=== PATIENT | female | born 1935 | race Hispanic/Latino ===

== ENCOUNTER 2024-07-14 08:12 | Observation (INO) | payer OTHER ==
[2024-07-10 12:45] VITALS: BP 174/65; PULSE 78; RESP 16; TEMP 98.1
[2024-07-10 12:46] LABS: APPEARANCE,URINE CLEAR (CLEAR); BILIRUBIN,URINE NEGATIVE (NEGATIVE); COLOR,URINE LIGHT-YELLOW (YELLOW); GLUCOSE, URINE (UA) NEGATIVE (NEGATIVE); KETONES,URINE NEGATIVE (NEGATIVE); LEUKOCYTE ESTERASE ,URINE 75 Leu/uL (NEGATIVE); NITRATE,URINE NEGATIVE (NEGATIVE); OCCULT BLOOD,URINE NEGATIVE (NEGATIVE); PH,URINE 6.5 (5.0-8.0); PROTEIN,URINE 20 mg/dL (NEGATIVE); UROBILINOGEN,URINE 0.2 mg/dL (0.2-1.0)
[2024-07-10 12:47] LABS: ADD UA MICROSCOPIC YES
[2024-07-10 12:50] LABS: RBC,URINE 0-1 /HPF (0-1); SQUAMOUS EPITHELIAL CELL,UR RARE /HPF (0-2)
[2024-07-10 12:51] LABS: BASOPHILS # (AUTO) 0.05 K/uL (0.00-0.20); BASOPHILS % (AUTO) 0.7 % (0.0-5.0); EOSINOPHILS # (AUTO) 0.28 K/uL (0.00-0.70); HEMATOCRIT 42.2 % (36-48); IMMATURE GRANULOCYTE ABSOLUTE 0.02 K/uL (0-1); LYMPHOCYTES # (AUTO) 2.2 K/uL (1.0-4.8); LYMPHOCYTES % (AUTO) 31.1 % (21.0-51.0); MEAN CORPUSCULAR HEMOGLOBIN 30.5 pg (27.0-33.0); MEAN CORPUSCULAR HGB CONC 33.6 g/dL (32.0-36.0); MEAN CORPUSCULAR VOLUME 90.6 fL (79-99); MONOCYTES # (AUTO) 0.6 K/uL (0.1-1.0); MONOCYTES % (AUTO) 8.6 % (3.0-13.0); NEUTROPHILS # (AUTO) 3.9 K/uL (1.8-7.7); NEUTROPHILS % (AUTO) 55.3 % (40.0-77.0); PLATELET COUNT (AUTO) 211 K/uL (130-400); RED BLOOD CELL COUNT(AUTO) 4.66 MIL/uL (4.00-5.50); RED CELL DISTRIBUTION WIDTH 12.6 % (11.0-15.5); WHITE BLOOD COUNT (AUTO) 7.1 K/uL (4.8-10.8)
[2024-07-10 12:58] LABS: CREATININE 1.1 mg/dL (0.5-1.0); POTASSIUM 3.7 mmol/L (3.5-5.1)
[2024-07-10 13:13] LABS: BACTERIA,URINE Rare /HPF (None Seen)
[2024-07-10 13:20] LABS: INR 1.02 (0.85-1.15); PROTHROMBIN TIME 10.8 SEC (9.6-11.6)
[2024-07-10 13:21] LABS: PARTIAL THROMBOPLASTIN TIME 28.6 SEC (26.3-35.5)
--- NOTE | 2024-07-10 13:28 | EKG ---
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
[2024-07-14] VITALS (24 sets, daily range): BP systolic 114–145; BP diastolic 50–74; PULSE 65–101; RESP 12–20; TEMP 97.2–98.3; O2SAT 95
[~2024-07-14] VITALS: Ht 152.4 cm; Wt 66.6 kg
[~2024-07-14 08:12] MED LIST: AMLO1CAP PO; ATOR40TA71 PO; CALC-1125 PO; EXEM25TA PO; FISH1CAP63 PO; FOLI1TAB85 PO; METO25TA6 PO; METO50TA18 PO; POTA-277 PO; TIMO.25OS OD; TRIA1CAP87 PO; VITAMIN D PO
[2024-07-14] MEDS: LACTATED RINGERS 1000ML 1,000 ML IV ONE ×2 (09:43→10:17)
[2024-07-14] MEDS: ceFAZolin SODIUM 2 GM VIAL ONE (09:43)
[2024-07-14] MEDS ORDERED: LIDOCAINE PF 100MG/5ML (2%) SYRINGE 5ML ONE (12:55)
[2024-07-14] MEDS ORDERED: proPOFol 10 MG/ML 20ML VIAL IV ONE (12:55)
[2024-07-14] MEDS ORDERED: FENTanyl CITRate PF 50 MCG/1 ML 2ML VIAL ONE (12:55)
[2024-07-14] MEDS: ceFAZolin SODIUM 2 GM VIAL IVPB ONE (13:56)
[2024-07-14] MEDS ORDERED: ondanSETRON 4MG INJ ONE (15:12)
[2024-07-14] MEDS ORDERED: ePHEDrine SULFate 50 MG/ML AMPULE ONE (15:12)
[2024-07-14] MEDS ORDERED: dexaMETHasone SOD PHOSPHATE 10MG/ML 1ML VIAL ONE (15:12)
--- NOTE | 2024-07-14 17:06 | OP ---
Operative Note: DATE OF PROCEDURE: 07/14/24 SURGEON: BETH CONNORS MD COMPUTER FORENSIC SPECIALIST: [] PREOPERATIVE DIAGNOSIS: Left breast cancer with a confirmed positive lymph node left axilla POSTOPERATIVE DIAGNOSIS: Left breast cancer PROCEDURE: Left simple mastectomy with left axillary dissection INDICATIONS: Patient with a left breast cancer locally advanced needing local regional control DESCRIPTION OF PROCEDURE:Patient is brought to the operating room placed on the operating table in a supine position once general endotracheal anesthesia is achieved patient's left arm and chest are prepped and draped in sterile fashion. Using the hand-held Doppler identified the medial perforators are marked about the skin. I marked my inferior mammary fold, the sternum and the xiphoid and the superior border of the breast under the clavicle. we then proceeded to do elliptical incision over top of the breast that involve the nipple and all the inferior quadrants of the breast because the skin below the nipple was completely involved with tumor. and started to create our skin flaps started developing my superior and inferior skin flaps. Medially we went to the level of the sternum making sure to preserve the medial perforators that I had marked. superiorly to the level of the clavicle, inferior to the inframammary fold and lateral to her insertion of the serratus muscle. We then proceeded to use the Bovie cautery to remove the breast of the pectoralis muscle obtain hemostasis and remove the specimen completely. We marked the specimen with long white stitch lateral, long black stitch was cephalad, short black was medial. We obtain hemostasis within our surgical wound irrigated with saline. We then turned to the axilla with blunt dissection identified the axillary vein and dissected the fatty pad distal to this with the hand-held harmonic we did a level 3 going under the pectoralis muscle and a level 1 dissection. We handed off of the specimen as axillary dissection and then obtain hemostasis. And then proceeded to place our 10 Liberian drain into the lateral skin and secured into the skin with a nylon suture x2, leaving one drain in the superior skin flap and one in the inferior skin flap. I then proceeded to released the inferior skin flap of the upper abdomen to obtain more mobility. We also excised the lateral chest wall skin that was redundant to the we can have a flat closure. And sent the skin for specimen. We then proceeded to close the skin incisions with 2 layer fashion the deep dermal was closed with 0 Vicryl and the skin was closed with 4-0 Monocryl running subcuticular fashion , Dermabond was applied over top. 4 x 4's fluffs and Kerlix were applied over top and then Nathan bandage 6 inch for compression. Patient tolerated the procedure well all counts were correct x2 at the end of the procedure. ESTIMATED BLOOD LOSS: 20cc Devices left in place: 10 Liberian flat drain x2 Specimens removed: Left breast, left axillary dissection, left chest wall skin Anesthesia: Local MAC with regional control with block BETH CONNORS MD Jul 14, 2024 17:06
[2024-07-14] MEDS: FENTanyl CITRate PF 50 MCG/1 ML 2ML VIAL ONE (17:51)
--- NOTE | 2024-07-14 18:45 | NUR ---
Arrival on Unit Patient arrived on unit from PACU. Patient oriented to room. Family at bedside.
[2024-07-14] MEDS ORDERED: morPHINE 4 MG SYG IVP PRN (20:00)
[2024-07-14] MEDS: 0.9%NACL 1000ML 1,000 ML IV SCH (20:54)
[2024-07-14] MEDS: ibuPROFEN 800 MG TAB PO SCH (20:54)
[2024-07-15] VITALS (9 sets, daily range): BP systolic 118–134; BP diastolic 51–59; PULSE 56–92; RESP 16–20; TEMP 97.6–98.5; O2SAT 95–97
[2024-07-15 05:04] LABS: BASOPHILS # (AUTO) 0.01 K/uL (0.00-0.20); BASOPHILS % (AUTO) 0.1 % (0.0-5.0); HEMATOCRIT 40.4 % (36-48); IMMATURE GRANULOCYTE ABSOLUTE 0.03 K/uL (0-1); LYMPHOCYTES # (AUTO) 0.8 K/uL (1.0-4.8); LYMPHOCYTES % (AUTO) 7.3 % (21.0-51.0); MEAN CORPUSCULAR HEMOGLOBIN 30.3 pg (27.0-33.0); MEAN CORPUSCULAR HGB CONC 33.4 g/dL (32.0-36.0); MEAN CORPUSCULAR VOLUME 90.6 fL (79-99); MONOCYTES # (AUTO) 0.2 K/uL (0.1-1.0); MONOCYTES % (AUTO) 2.2 % (3.0-13.0); NEUTROPHILS % (AUTO) 90.1 % (40.0-77.0); PLATELET COUNT (AUTO) 173 K/uL (130-400); RED BLOOD CELL COUNT(AUTO) 4.46 MIL/uL (4.00-5.50); RED CELL DISTRIBUTION WIDTH 12.5 % (11.0-15.5); WHITE BLOOD COUNT (AUTO) 11.1 K/uL (4.8-10.8)
[2024-07-15 05:21] LABS: POTASSIUM 3.2 mmol/L (3.5-5.1)
[2024-07-15] MEDS: ketOROlac 15MG/ML VIAL (15MG/ML) IV ONE (10:13)
--- NOTE | 2024-07-15 11:00 | NUR ---
cm note call made to [facility] and spoke to [place] commercial construction project manager and states they do not accept [facility] any more. also, referral faxed to [facility]. and pending callback.
--- NOTE | 2024-07-15 11:32 | PN ---
GENERAL SURGERY PROGRESS NOTE Date/Time Patient Seen: [ 07/15/2024] Problem List: [ ] Interval History: [88-year-old female, postop day 1., left simple mastectomy with left axillary dissection by Dr. Malcolm Patient states she has been doing well throughout the night Mild pain at a 1-2 on a pain scale this morning Surgical dressings remained dry and intact throughout the night CEZAR drain #1 with 40 cc serosanguineous output CEZAR drain #2 with 50 cc serosanguineous output WBC stable at 11.1 H&H stable 13.5 and 40.4 Patient denies any nausea or vomiting, tolerated diet this morning May advance diet as tolerated Encouraged ambulation Instructed to avoid using any strenuous movements from upper body We will order Toradol 15 mg IV x1 dose now for pain management Plan will be for patient to be discharged home tomorrow once arrangements for home health have been made Dr. Malcolm updated on patient's status] Current Medications Medications (Trade) Dose Ordered Sig/Guerda Route Start Time Stop Time Status Last Admin Dose Admin Ibuprofen (moTRIN) 800 mg Q8H PO 07/14/24 20:00 08/13/24 19:59 07/14/24 20:54 800 MG Sodium Chloride 1,000 ml @ 30 mls/hr Q24H IV 07/14/24 19:30 08/13/24 19:29 07/14/24 20:54 30 MLS/HR Physical Examination: GENERAL: [No acute distress, elderly female, comfortably resting in bed with and daughter at bedside] HEAD: [Normocephalic] EYES: [Conjunctiva and sclera normal.] ENT: [Hearing grossly intact.] NECK: [Supple without JVD.] LUNGS: [Clear breath sounds bilaterally.] HEART: [Normal rate and rhythm. Surgical dressings to chest dry and intact, CEZAR drains x 2 with serosanguineous output] VASC: [Peripheral pulses +2 bilaterally.] ABD: [Bowel sounds normal, soft, nontender, no masses, no organomegaly. No audible bruits.] : [Not examined] EXT: [No edema.] SKIN: [No lesions noted.] NEURO: [Awake, alert, and oriented x3. No focal sensory or strength deficits noted.] Vital Signs (last 8hr) Date Time Temp Pulse Resp B/P (MAP) Pulse Ox O2 Delivery O2 Flow Rate FiO2 07/15/24 08:00 98.2 92 18 134/59 97 Nasal Cannula 2.0 24 07/15/24 04:00 98.2 56 19 122/57 97 Nasal Cannula 2.0 Laboratory: [ ] Hematology Labs: Test 07/15/24 04:49 Range/Units White Blood Count 11.1 H 4.8-10.8 K/uL Red Blood Count 4.46 4.00-5.50 MIL/uL Hemoglobin 13.5 12.0-16.0 g/dL Hematocrit 40.4 36-48 % Mean Corpuscular Volume 90.6 79-99 fL Mean Corpuscular Hemoglobin 30.3 27.0-33.0 pg Mean Corpuscular Hemoglobin Concent 33.4 32.0-36.0 g/dL Red Cell Distribution Width 12.5 11.0-15.5 % Platelet Count 173 130-400 K/uL Mean Platelet Volume 10.9 H 7.5-10.5 fL Immature Granulocyte % (Auto) 0.3 0-1 % Neutrophils (%) (Auto) 90.1 H 40.0-77.0 % Lymphocytes (%) (Auto) 7.3 L 21.0-51.0 % Monocytes (%) (Auto) 2.2 L 3.0-13.0 % Eosinophils (%) (Auto) 0.0 0.0-8.0 % Basophils (%) (Auto) 0.1 0.0-5.0 % Neutrophils # (Auto) 10.0 H 1.8-7.7 K/uL Lymphocytes # (Auto) 0.8 L 1.0-4.8 K/uL Monocytes # (Auto) 0.2 0.1-1.0 K/uL Eosinophils # (Auto) 0.00 0.00-0.70 K/uL Basophils # (Auto) 0.01 0.00-0.20 K/uL Absolute Immature Granulocyte (auto 0.03 0-1 K/uL Nucleated Red Blood Cells 0.0 0.0-0.19 % White Cell Morphology Comment See comments Chemistry Labs: Test 07/15/24 04:49 Range/Units Sodium Level 145 136-145 mmol/L Potassium Level 3.2 L 3.5-5.1 mmol/L Chloride Level 104 101-111 mmol/L Carbon Dioxide Level 26 21-32 mmol/L Blood Urea Nitrogen 22 H 7-18 mg/dL Creatinine 1.0 0.5-1.0 mg/dL Glomerular Filtration Rate Calc 54 >90 mL/min Random Glucose 136 H 70-105 mg/dL Total Calcium 8.7 8.5-10.1 mg/dL Diagnostics / Radiology: [Copy/Paste Echos/Imaging Report here] Impression and Plan: [ ] ATTESTATION BY PHYSICIAN I have seen and examined the patient. I reviewed the documentation, medical decision making, and treatment plan as noted by the mid-level provider above. I agree with the findings and plan of care. MD SHANNON MEJIA LETICIA A APRN Jul 15, 2024 11:32
--- NOTE | 2024-07-15 13:38 | NUR ---
cm note received callback from Bairon Worthy nurse electronic die maker with [facility] and states they are in network, but will not be able to verify if can accept until wednesday.
--- NOTE | 2024-07-15 14:18 | NUR ---
CM NOTE Call made to nurses that care hh superintendent plant protection.. pending callback.
--- NOTE | 2024-07-15 14:53 | NUR ---
CM NOTE SPOKE TO [employer] [employer] FOR [facility]URSES THAT CARE [facility] AND STATES THEY ARE NOT IN NETWORK.
--- NOTE | 2024-07-15 15:30 | NUR ---
PT radha completed. Pt able to transfer and ambulate with walker. Pt has walker at home and I left one in her room for her use here> Patient completed 6MWT at 94% and better on room air. Patient given a sling to use ad daniel for comfort and instructed in use Patient and family given HEP and handouts education on risk factors, limitations and ROM post op. No further questions. pt able to ambulate in halls ad daniel, DC from PT
--- NOTE | 2024-07-15 15:39 | NUR ---
Education Patient and family educated on how to empty and accurately measure CEZAR Drains in place, and on how to reset the drains for suction. RN demonstrated the entire process. Patient and family verbalized understanding.
--- NOTE | 2024-07-15 17:41 | NUR ---
cm note met with pt and with daughter emely hua present, states pt is independent with ambulation, adls, has walker, but does not use. no provider no home health, daughter states she can assist as needed.plan is for home [place]. informed of calls to Home health agencies, and no acceptance yet, informed of calls to several Agencies.but no approval yet. will continue to followup on this. nurse updated as well. Addendum: 07/15/24 at 1745 by TESS HUFFMAN CM Amended: Links added.
--- NOTE | 2024-07-15 17:50 | NUR ---
cm note Referral sent to [facility], per rep Bairon Worthy, [facility] is in network, but need to verify coverage. will review on Wednesday. and will advise. updated primary nurse.
[2024-07-16] VITALS: BP 112/57; PULSE 95; RESP 16; TEMP 97.5
[2024-07-16 04:00] VITALS: BP 142/61; PULSE 80; RESP 16; TEMP 97.7
[2024-07-16 07:42] VITALS: BP 148/72; PULSE 82; RESP 18; TEMP 97.8
[2024-07-16 08:00] VITALS: O2SAT 94
[2024-07-16] MEDS: TIMOLOL MALEATE 0.25% 5 ML BOTTLE OD SCH (08:43)
[2024-07-16] MEDS: HCTZ PO SCH (08:43)
[2024-07-16] MEDS: [UNRECOGNIZED DRUG - OTHER] PO SCH (08:43)
[2024-07-16] MEDS: VITAMIN D PO SCH (08:44)
[2024-07-16] MEDS ORDERED: TRIAMTEREN/HCTZ 37.5/25 MG 1 TAB TAB PO SCH (09:00)
[2024-07-16] MEDS: Vitamin B Complex/Vit C/Folic Acid PO SCH (09:36)
[2024-07-16] MEDS: metoPROLOL tartRATE 25 MG TAB PO SCH (09:36)
--- NOTE | 2024-07-16 10:51 | PN ---
GENERAL SURGERY PROGRESS NOTE Date/Time Patient Seen: [07/16/2024 ] Problem List: [ ] Interval History: [88-year-old female, postop day 2, left simple mastectomy with left axillary dissection by Dr. Malcolm Patient states she has been doing well throughout the night Minimal pain reported by patient Surgical incisions with edges well approximated using Dermabond, flaps are looking good and healthy, no signs of ischemia CEZAR drain #1 with serosanguineous output CEZAR drain #2 with serosanguineous output Tolerating regular diet without any nausea or vomiting Patient has been ambulating without any problems Plan plans to discharge home once arrangements for home health have been made Dr. Malcolm updated on patient's status] Current Medications Medications (Trade) Dose Ordered Sig/Guerda Route Start Time Stop Time Status Last Admin Dose Admin Amlodipine/ Benazepril HCl (LotrEL 5-10 MG) 2 each AM PO 07/16/24 09:00 07/16/24 08:33 DC Atorvastatin Calcium (LIPItor 40MG) 40 mg HS PO 07/16/24 21:00 08/15/24 20:59 Home Med (Home Medication) Calcium Carbonate (Calci... PM PO 07/16/24 21:00 08/15/24 20:59 Home Med (Home Medication) Exemestane 25 MG NOON PO 07/16/24 12:00 08/15/24 11:59 Home Med (Home Medication) Fish Oil 1,200 mg 1 EACH PM PO 07/16/24 21:00 08/15/24 20:59 Home Med (Home Medication) Potassium Citrate 10 MEQ PM PO 07/16/24 21:00 08/15/24 20:59 Home Med (Home Medication) TRIAMTEREN/ HCTZ 37.5/25 MG 1 TAB DAILY PO 07/16/24 09:00 08/15/24 08:59 Home Med (Home Medication) Vitamin D 500 MCG BID PO 07/16/24 09:00 08/15/24 08:59 Home Med (Home Medication) amLODIPine-benAZEPril 5-10 MG DAILY PO 07/16/24 09:00 08/15/24 08:59 Ibuprofen (moTRIN) 800 mg Q8H PO 07/14/24 20:00 08/13/24 19:59 07/15/24 13:28 800 MG Metoprolol Tartrate (loprESSOR) 25 mg AM PO 07/16/24 09:00 08/15/24 08:59 07/16/24 09:36 25 MG Metoprolol Tartrate (loprESSOR) 50 mg HS PO 07/16/24 21:00 08/15/24 20:59 Sodium Chloride 1,000 ml @ 30 mls/hr Q24H IV 07/14/24 19:30 08/13/24 19:29 07/14/24 20:54 30 MLS/HR Timolol Maleate (Timoptic) 1 APPL OD BID BID OD 07/16/24 09:00 08/15/24 08:59 Triamterene/HCTZ (Dyazide) 1 tab AM PO 07/16/24 09:00 07/16/24 08:35 DC Vitamin B Complex/ Vit C/Folic Acid (Nephrovite Tablet) 1 cap DAILY PO 07/16/24 09:00 08/15/24 08:59 07/16/24 09:36 1 CAP Physical Examination: GENERAL: [No acute distress, elderly female, comfortably resting in bed with and daughter at bedside] HEAD: [Normocephalic] EYES: [Conjunctiva and sclera normal.] ENT: [Hearing grossly intact.] NECK: [Supple without JVD.] LUNGS: [Clear breath sounds bilaterally.] HEART: [Normal rate and rhythm. Left chest surgical incision with edges well approximated, flaps with healthy skin no signs of ischemia, no drainage, CEZAR drains x 2 with serosanguineous output] VASC: [No edema.] ABD: [Bowel sounds normal, soft, nontender.] : [Not examined] EXT: [No edema.] SKIN: [No lesions noted.] NEURO: [Awake, alert, and oriented x3. No focal sensory or strength deficits noted.] Vital Signs (last 8hr) Date Time Temp Pulse Resp B/P (MAP) Pulse Ox O2 Delivery O2 Flow Rate FiO2 07/16/24 07:42 97.9 82 18 148/72 93 Room Air 07/16/24 04:00 97.7 80 16 142/61 93 Room Air 21 Laboratory: [ ] Hematology Labs: Test 07/15/24 04:49 Range/Units White Blood Count 11.1 H 4.8-10.8 K/uL Red Blood Count 4.46 4.00-5.50 MIL/uL Hemoglobin 13.5 12.0-16.0 g/dL Hematocrit 40.4 36-48 % Mean Corpuscular Volume 90.6 79-99 fL Mean Corpuscular Hemoglobin 30.3 27.0-33.0 pg Mean Corpuscular Hemoglobin Concent 33.4 32.0-36.0 g/dL Red Cell Distribution Width 12.5 11.0-15.5 % Platelet Count 173 130-400 K/uL Mean Platelet Volume 10.9 H 7.5-10.5 fL Immature Granulocyte % (Auto) 0.3 0-1 % Neutrophils (%) (Auto) 90.1 H 40.0-77.0 % Lymphocytes (%) (Auto) 7.3 L 21.0-51.0 % Monocytes (%) (Auto) 2.2 L 3.0-13.0 % Eosinophils (%) (Auto) 0.0 0.0-8.0 % Basophils (%) (Auto) 0.1 0.0-5.0 % Neutrophils # (Auto) 10.0 H 1.8-7.7 K/uL Lymphocytes # (Auto) 0.8 L 1.0-4.8 K/uL Monocytes # (Auto) 0.2 0.1-1.0 K/uL Eosinophils # (Auto) 0.00 0.00-0.70 K/uL Basophils # (Auto) 0.01 0.00-0.20 K/uL Absolute Immature Granulocyte (auto 0.03 0-1 K/uL Nucleated Red Blood Cells 0.0 0.0-0.19 % White Cell Morphology Comment See comments Chemistry Labs: Test 07/15/24 04:49 Range/Units Sodium Level 145 136-145 mmol/L Potassium Level 3.2 L 3.5-5.1 mmol/L Chloride Level 104 101-111 mmol/L Carbon Dioxide Level 26 21-32 mmol/L Blood Urea Nitrogen 22 H 7-18 mg/dL Creatinine 1.0 0.5-1.0 mg/dL Glomerular Filtration Rate Calc 54 >90 mL/min Random Glucose 136 H 70-105 mg/dL Total Calcium 8.7 8.5-10.1 mg/dL Diagnostics / Radiology: [Copy/Paste Echos/Imaging Report here] Impression and Plan: [ ] ATTESTATION BY PHYSICIAN I have seen and examined the patient. I reviewed the documentation, medical decision making, and treatment plan as noted by the mid-level provider above. I agree with the findings and plan of care. MD SHANNON MEJIA LETICIA A APRN Jul 16, 2024 10:51
[2024-07-16 11:30] VITALS: BP 131/65; PULSE 66; RESP 17; TEMP 98
--- NOTE | 2024-07-16 11:56 | NUR ---
cm note called by pt and multiple family members to provide update on , informed that referral was sent to [facility], and that we are just pending for approval. spoke to Bairon dunn at [facility], states they are unable to verify if they can accept patient. until wednesday when they are open and able to verify benefits. updated charge nurse.
[2024-07-16] MEDS: Exemestane 25 MG PO SCH (12:00)
[2024-07-16 15:38] VITALS: BP 138/66; PULSE 77; RESP 18; TEMP 98.3
--- NOTE | 2024-07-16 16:20 | NUR ---
cm note call made to Dr Malcolm updated that pt/family has been requesting to go home. But, they also wanted to make sure that all was in place for the Home health. dr Malcolm made aware we dont have approval, we are pending approval from [facility] due to weekend. per Dr malcolm states she feels comfortable discharging pt and also states that pt/family can call her office for any question or concerns including the wound care/HH. spoke to pt/daughter emely hua. regarding orders for dc home, primary nurse present. Pt and daughter-Emely Hua [phone] in agreement for home. Provided phone # for Darío CM Director for any questions/concerns regarding the Home health. primary nurse present and aware of above.
--- NOTE | 2024-07-16 19:37 | NUR ---
Discharge Patient discharged. Taken downstairs by a WINDSHIELD TECHNICIAN accompanied by family.
[2024-07-16] MEDS ORDERED: atorVAStatin 40 MG TABLET PO SCH (21:00)
[2024-07-16] MEDS ORDERED: metoPROLOL tartRATE 50 MG TAB PO SCH (21:00)
[2024-07-16] MEDS ORDERED: FISH OIL 1200 MG PO SCH (21:00)
== END 2024-07-16 19:38 | disposition home or self-care (01) ==
LOC: DAH 08:12 → EDHIP 08:13 → DAH 08:13 → 3BH 18:45
PROVIDERS: ADMIT Student in an Organized Health Care Education/Training Program; ATTEND Student in an Organized Health Care Education/Training Program
DX: C50.912 Malignant neoplasm of unspecified site of left female breast (principal); N63.32 Unspecified lump in axillary tail of the left breast; I10 Essential (primary) hypertension; E78.00 Pure hypercholesterolemia, unspecified; Z79.899 Other long term (current) drug therapy; Z86.2 Personal history of diseases of the blood and blood-forming organs and certain disorders involving the immune mechanism
CPT/HCPCS: 80048 ×2; 85025 ×2; 85610; 85730; 87086; 81001; 36415 ×2; 93005; 19303; 38525; 96374; 97161; 97116; 97530 ×2; A6260; G0378 ×48; A4663; J7120 ×3; J3010 ×2; J1100; J2003; J3490; J2704; J2405; J0690 ×2; A4930; A4215; A4223 ×2; A4657; A4222; A4221; A4600; J1885; 96375